=== PATIENT | female | born 1985 | race African-American/Black ===

== ENCOUNTER 2016-07-05 19:12 | Emergency (ER) | payer OTHER, MEDICAID ==
[~2016-07-05 19:12] MED LIST: HYDR12.56 PO; KEPP10002 PO; LORA10TA PO; MEDR150I9 IM; MOME17I; OMEP40CA2 PO; OYST500T53 PO; SALI0.652; TYLE325T PO
[2016-07-05 19:14] VITALS: BP 115/79; PULSE 89; RESP 18; TEMP 97.9; O2SAT 98
[2016-07-05 19:40] VITALS: BP 119/78; PULSE 78; RESP 16; O2SAT 100
[2016-07-05] MEDS ORDERED: TEGR200T PO ×2 (20:10→20:31)
[2016-07-05] MEDS ORDERED: BUSP10TA PO (20:10)
[2016-07-05] MEDS ORDERED: LORA-373 PO (20:10)
[2016-07-05] MEDS ORDERED: DAILTAB PO (20:10)
[2016-07-05] MEDS ORDERED: ZIPR1CAP10 PO (20:11)
[2016-07-05] MEDS ORDERED: LEVE500 PO (20:31)
[2016-07-05 20:39] LABS: BASOPHIL % 0.4 % (0.0-2.0); EOSINOPHIL # 0.1 TH/MM3 (0-0.4); EOSINOPHIL % 1.6 % (0.0-4.0); HEMATOCRIT 33.9 % (35.0-46.0); HEMO FLAGS DIFF FINAL; LYMPH % 31.9 % (9.0-44.0); LYMPHOCYTE # 1.7 TH/MM3 (1.0-4.8); MEAN CELL VOLUME 97.9 FL (80.0-100.0); MEAN CORPUSCULAR HGB CONC 34.7 % (32.0-36.0); MONO % 10.2 % (0.0-8.0); NEUT % 55.9 % (16.0-70.0); PLATELET COUNT 226 TH/MM3 (150-450); RED BLOOD COUNT 3.46 MIL/MM3 (4.00-5.30); RED CELL DISTRIBUTION WIDTH 11.3 % (11.6-17.2); WHITE BLOOD COUNT 5.3 TH/MM3 (4.0-11.0)
[2016-07-05 20:59] LABS: BICARBONATE 29.5 MEQ/L (21.0-32.0)
--- NOTE | 2016-07-05 21:04 | RADRPT ---
EXAM DATE/TIME: 07/05/2016 20:31 [facility] COMPARISON: No previous studies available for comparison. INDICATIONS : Altered mental status today. RADIATION DOSE: 49.48 CTDIvol (mGy) MEDICAL HISTORY : Seizures. SURGICAL HISTORY : Cholecystectomy. ENCOUNTER: Initial ACUITY: 1 day PAIN SCALE: Non-responsive LOCATION: Bilateral head TECHNIQUE: Multiple contiguous axial images were obtained of the head. Using automated exposure control and adj ustment of the mA and/or kV according to patient size, radiation dose was kept as low as reasonably a chievable to obtain optimal diagnostic quality images. FINDINGS: CEREBRUM: The ventricles are normal for age. No evidence of midline shift, mass lesion, hemorrhage or acute in farction. No extra-axial fluid collections are seen. POSTERIOR FOSSA: The cerebellum and brainstem are intact. The 4th ventricle is midline. The cerebellopontine angle i s unremarkable. EXTRACRANIAL: The visualized portion of the orbits is intact. SKULL: The calvaria is intact. No evidence of skull fracture. CONCLUSION: No acute intracranial abnormality demonstrated. Roge Chavira MD on July 05, 2016 at 21:02 Board Certified Radiologist. This report was verified electronically.
--- NOTE | 2016-07-05 21:07 | PD ---
HPI Chief Complaint: Medical Clearance Time Seen by Provider: 21:00 Travel History International Travel<30 days: No Contact w/Intl Traveler<30days: No Traveled to known affect area: No History of Present Illness HPI 31-year-old female that presents to the ED for evaluation of neurological deficits. Patient has a chronic history of autism, developmental delay, deaf as well as seizures. Patient has a new voice intercept technician today. Apparently after shift change the new voice intercept technician noted that the patient was having some abnormal twitching on her left eye and episodes where she will blank out and then will go back to normal. Per family who is also present in the room patient does have a history of grand mal seizures and takes Keppra and Tegretol. Patient follows with Dr. Gibson for neurology. Patient has an appointment next week with the neurologist. No injury. Family and caregiver were concerned more for the stroke. Per family and caregiver patient has been more lethargic than usual. Today she has been more laying on the couch and laying on the bed been doing anything else. Usually she walks around. They state there is no sign of fever or chills or sweats. No chest pain or shortness of breath. Patient has no other medical prongs. She is compliant with her medications. They basically wanted to come here to make sure she does not have a stroke secondary to her facial twitching and her staring episodes. Most of the history is obtained from family as patient is nonverbal and cannot really give me any information but she does appear to follow commands well. PFSH Past Medical History Developmental Delay: Yes Diminished Hearing: Yes (DEAF BILATERALLY) Psychiatric: Yes (AUTISTIC) Seizures: Yes ?: Not Past Surgical History Cholecystectomy: Yes Pacemaker: No Social History Alcohol Use: No Tobacco Use: No Substance Use: No Allergies-Medications (Allergen,Severity, Reaction): Coded Allergies: No Known Allergies (Verified , 07/05/16) Reported Meds & Prescriptions Reported Meds & Active Scripts Active Reported Keppra (Levetiracetam) 500 Mg Tab 500 Mg PO BID Tegretol (Carbamazepine) 200 Mg Tab 200 Mg PO BID Ziprasidone 60 Mg Cap 60 Mg PO DAILY Tegretol (Carbamazepine) 200 Mg Tab 100 Mg PO DAILY Daily Multi (Multiple Vitamins W/ Minerals) 1 Tab Tab Buspirone (Buspirone HCl) 10 Mg Tab 10 Mg PO TID Lorazepam 0.5 Mg Tab 0.5 Mg PO Q8H PRN Hydrochlorothiazide 12.5 Mg Tab 12.5 Mg PO DAILY Tylenol (Acetaminophen) 325 Mg Tab 325 Mg PO Q8HR PRN Omeprazole 40 Mg Cap Nasonex Nasal [place] (Mometasone Furoate) 50 Mcg/Act Naspr Loratadine 10 Mg Tab Depo-Provera Inj (Medroxyprogesterone Inj) 150 Mg/Ml Inj 150 Mg IM Q90D Oyster Shell Calcium (Calcium Carbonate-Cholecalciferol) 500-400 Mg-Unit Tab 2 Tab PO DAILY Review of Systems ROS Limitations: Poor Historian General / Constitutional: No: Fever, Chills, Weight Gain, Weight Loss, Other Eyes: No: Diploplia, Blurred Vision, Photophobia, Drainage, Redness, Foreign Body Sensation, Pain, Tearing, Blind Spots, Visual changes, Blindness, Other HENT: No: Headaches, Vertigo, Lightheadedness, Sore Throat, Rhinitis, Rhinorrhea, Congestion, Nosebleed, Neck Stiffness, Neck Pain, Masses, Gingival Bleeding, Dental Difficulties, Ear Discharge, Earache, Other Cardiovascular: No: Chest Pain or Discomfort, Palpitations, Irregular Rhythm, Tachycardia, Diaphoresis, Syncope, Dyspnea on exertion, Varicosities, Edema, Cyanosis, Varicosities, Phlebitis, Claudication, Other Respiratory: No: Cough, Shortness of Breath, Wheezing, Sneezing, Orthopnea, Hemoptysis, Stridor, Night Sweats, Pleuritic Pain, Other Gastrointestinal: No: Nausea, Vomiting, Diarrhea, Abdominal Pain, Hematemesis, Hematochezia, Constipation, Changes in Bowel Habits, Indigestion, Dysphagia, Loss of Appetite, Other Genitourinary: No: Urgency, Frequency, Dysuria, Nocturia, Hematuria, Decreased Urinary Output, Oliguria, Hesitancy, Dribbling, Incontinence, Pelvic Pain, Flank Pain, Dyspareunia, Discharge, Dysmenorrhea, Menorrhagia, Metorrhagia, Vaginal Bleeding, Other Musculoskeletal: No: Myalgias, Arthralgias, Limited ROM, Weakness, Cramping, Edema, Pain, Atrophy, Other Skin: No Rash, No Itching, No Dryness, No Lumps, No Hives, No Change in Pigmentation, No Change in nails, No Alopecia, No Lesions, No Breast Lumps, No Breast Tenderness, No Breast Swelling, No Other Neurologic: Positive: Focal Abnormalities, Coordination Problem, Tremor, Seizures, No: Weakness, Dizziness, Syncope, Ataxia, Headache, Change in Mentation, Slurred Speech, Paresthesia, Incontinence, Sensory Disturbance, Other Psychiatric: No: Anxiety, Depression, Suicidal Ideations, Disorder of Thought, Mood Disorder, Substance Abuse, Homicidal Ideation, Other Endocrine: No: Heat Intolerance, Cold Intolerance, Polyuria, Polydipsia, Other Hematologic/Lymphatic: No: Easy Bruising, Lymph Node Enlargement, Other Physical Exam Exam Limitations: Poor Historian Narrative GENERAL: SKIN: Warm and dry. HEAD: Atraumatic. Normocephalic. EYES: Pupils equal and round 4 mm reactive to light and accommodation. No scleral icterus. No injection or drainage. EOM intact bilaterally. ENT: No nasal bleeding or discharge. Mucous membranes pink and moist. Tongue is midline. No blood deviation. She does appear to have some difficulty closing the right eye compared to the left. But no obvious facial paralysis. NECK: Trachea midline. No JVD. CARDIOVASCULAR: Regular rate and rhythm. No murmurs, S3, S4. RESPIRATORY: No accessory muscle use. Clear to auscultation. Breath sounds equal bilaterally. GASTROINTESTINAL: Abdomen soft, non-tender, nondistended. Hepatic and splenic margins not palpable. MUSCULOSKELETAL: Extremities without clubbing, cyanosis, or edema. No obvious deformities. Patient appears to have full range of motion of the upper and lower extremities without laterally with no sign of shaking worse deformity. 5 out of 5 strength. Patient does have diverticulitis of the right side of the neck which appears to be chronic. NEUROLOGICAL: Awake and alert. No obvious cranial nerve deficits. Motor grossly within normal limits. Five out of 5 muscle strength in the arms and legs. Normal speech. PSYCHIATRIC: Appropriate mood and affect; insight and judgment normal. Data Data Last Documented VS Vital Signs Date Time Temp Pulse Resp B/P Pulse Ox O2 Delivery O2 Flow Rate FiO2 07/05/16 19:40 78 16 119/78 100 07/05/16 19:14 97.9 Room Air Orders Complete Blood Count With Diff (07/05/16 20:04) Basic Metabolic Panel (Bmp) (07/05/16 20:04) Magnesium (Mg) (07/05/16 20:04) Ct Brain W/O Iv Contrast(Rout) (07/05/16 20:04) Levetiracetam (07/05/16 20:04) Carbamazepine (Tegretol) (07/05/16 20:57) Mri Brain W/O Contrast (07/05/16 ) Labs Laboratory Tests Test 07/05/16 20:15 White Blood Count 5.3 TH/MM3 Red Blood Count 3.46 MIL/MM3 Hemoglobin 11.8 GM/DL Hematocrit 33.9 % Mean Corpuscular Volume 97.9 FL Mean Corpuscular Hemoglobin 34.0 PG Mean Corpuscular Hemoglobin 34.7 % Concent Red Cell Distribution Width 11.3 % Platelet Count 226 TH/MM3 Mean Platelet Volume 7.0 FL Neutrophils (%) (Auto) 55.9 % Lymphocytes (%) (Auto) 31.9 % Monocytes (%) (Auto) 10.2 % Eosinophils (%) (Auto) 1.6 % Basophils (%) (Auto) 0.4 % Neutrophils # (Auto) 3.0 TH/MM3 Lymphocytes # (Auto) 1.7 TH/MM3 Monocytes # (Auto) 0.5 TH/MM3 Eosinophils # (Auto) 0.1 TH/MM3 Basophils # (Auto) 0.0 TH/MM3 CBC Comment DIFF FINAL Differential Comment Sodium Level 136 MEQ/L Potassium Level 4.0 MEQ/L Chloride Level 101 MEQ/L Carbon Dioxide Level 29.5 MEQ/L Anion Gap 6 MEQ/L Blood Urea Nitrogen 11 MG/DL Creatinine 0.97 MG/DL Estimat Glomerular Filtration 81 ML/MIN Rate Random Glucose 84 MG/DL Calcium Level 8.4 MG/DL Magnesium Level 2.0 MG/DL Carbamazepine (Tegretol) Level 6.4 MCG/ML MDM Medical Decision Making Medical Screen Exam Complete: Yes Emergency Medical Condition: Yes Medical Record Reviewed: Yes Interpretation(s) CBC Diagram 07/05/16 20:15 Differential Diagnosis Seizure versus CVA versus electrolyte abnormality versus spasm versus normal exam Narrative Course 31-year-old female that presents to the ED for evaluation of possible seizure versus CVA. Patient was properly examined and was found to have signs and symptoms consistent with appears to be more seizure related versus takes than actual CVA. Patient has no obvious deficits. On my exam patient doesn't have any sign of weakness or deformity. It is somewhat hard to assess secondary to her deafness as well as her mental illness. At this time and we'll check labs and do a CT of the head. Labs and CT showed no obvious disease. My attending Dr Angeles went and evaluated the patient and recommends MRI to rule out CVA. She believes that this could be bells palsy vs CVA vs seizures. She is unfortunately hard to asses secondary to her medical and mental conditions. Family told of this and agreeable. Case signed out to my attending pending MRI result. Orlando Doherty Jul 05, 2016 21:06
--- NOTE | 2016-07-05 21:41 | PD ---
Physical Exam Narrative General: The patient is a well-developed well-nourished female in no acute distress, awake and alert. She is cooperative on examination. She is nonverbal. Head and Neck exam: Head is normocephalic atraumatic. Eyes: EOMI, pupils are equal round and reactive to light. The patient is having difficulty closing the right eye on exam. She has repeated tearing of the right eye. The patient has a facial droop when attempting to smile noted in the right side of her face. Nose: Midline septum with pink mucous membranes Mouth: Dentition unremarkable. Moist mucus membranes. Posterior oropharynx is not erythematous. No tonsillar hypertrophy. Uvula midline. Airway patent. Neck: No palpable lymphadenopathy. No nuchal rigidity. No thyromegaly. Cardiovascular: Regular rate and rhythm without murmurs, gallops, or rubs. Lungs: Clear to auscultation bilaterally. No wheezes, rhonchi, or rales. Abdomen: Soft, without tenderness to palpation in all 4 quadrants of the abdomen. No guarding, rebound, or rigidity. Normal bowel sounds are audible Extremities: No clubbing, cyanosis, or edema. 2+ pulses in all 4 extremities. Neurologic Exam: The patient is nonverbal at baseline. The patient has a history from looking at her prior neurologic examinations of maintaining her neck hyperextended and turned to the right, however she is able to overcome this and look about the room. The patient has strength in her extremities that is 5 over 5 and intact sensation over all dermatomes although it is difficult to examine her face for intact sensation over facial dermatomes. The patient is noted to have repeated tearing of the right eye with difficulty closing the right eye. The patient is noted to have a right sided slight facial droop with attempting to smile. The patient is not able to cooperate to raise her eyebrows , therefore it is difficult to assess whether she is able to do this and this is strictly a [place]'s palsy. Skin Exam: No rash noted. Intact skin that is warm and dry. Data Data Last Documented VS Vital Signs Date Time Temp Pulse Resp B/P Pulse Ox O2 Delivery O2 Flow Rate FiO2 07/05/16 22:00 79 16 122/80 97 Room Air 07/05/16 19:14 97.9 Orders Complete Blood Count With Diff (07/05/16 20:04) Basic Metabolic Panel (Bmp) (07/05/16 20:04) Magnesium (Mg) (07/05/16 20:04) Ct Brain W/O Iv Contrast(Rout) (07/05/16 20:04) Levetiracetam (07/05/16 20:04) Carbamazepine (Tegretol) (07/05/16 20:57) Mri Brain W/O Contrast (07/05/16 ) Valacyclovir (Valtrex) (07/05/16 23:30) Prednisone (Deltasone) (07/05/16 23:30) Labs Laboratory Tests Test 07/05/16 20:15 White Blood Count 5.3 TH/MM3 Red Blood Count 3.46 MIL/MM3 Hemoglobin 11.8 GM/DL Hematocrit 33.9 % Mean Corpuscular Volume 97.9 FL Mean Corpuscular Hemoglobin 34.0 PG Mean Corpuscular Hemoglobin 34.7 % Concent Red Cell Distribution Width 11.3 % Platelet Count 226 TH/MM3 Mean Platelet Volume 7.0 FL Neutrophils (%) (Auto) 55.9 % Lymphocytes (%) (Auto) 31.9 % Monocytes (%) (Auto) 10.2 % Eosinophils (%) (Auto) 1.6 % Basophils (%) (Auto) 0.4 % Neutrophils # (Auto) 3.0 TH/MM3 Lymphocytes # (Auto) 1.7 TH/MM3 Monocytes # (Auto) 0.5 TH/MM3 Eosinophils # (Auto) 0.1 TH/MM3 Basophils # (Auto) 0.0 TH/MM3 CBC Comment DIFF FINAL Differential Comment Sodium Level 136 MEQ/L Potassium Level 4.0 MEQ/L Chloride Level 101 MEQ/L Carbon Dioxide Level 29.5 MEQ/L Anion Gap 6 MEQ/L Blood Urea Nitrogen 11 MG/DL Creatinine 0.97 MG/DL Estimat Glomerular Filtration 81 ML/MIN Rate Random Glucose 84 MG/DL Calcium Level 8.4 MG/DL Magnesium Level 2.0 MG/DL Carbamazepine (Tegretol) Level 6.4 MCG/ML [facility] Medical Record Reviewed: Yes Supervised Visit with ELANA: Yes Differential Diagnosis [place]'s palsy, versus focal seizure, versus change in baseline related psychiatric disorder, versus metabolic encephalopathy, versus intracranial abnormality. Narrative Course I, Dr. Angeles, have reviewed the advance practice practitioner's documentation and am in agreement, met with the patient face to face, made the diagnosis, and the medical decision making was done by me. *My assessment and Findings: The patient is a 31-year-old female who presents to [facility] emergency Department with a history of according to her caregiver that is been caring for her part-time over the last year having a change in her normal behavior throughout the day today. She reports that she's been less active than usual and had a diminished appetite throughout the day. She has also been noted to have difficulty closing her right eye and tearing from her right eye. She has not had any vomiting or diarrhea. She has not had any signs of pain. Laboratory studies and imaging studies have been ordered to further evaluate the patient's symptoms. Laboratory studies revealed a CBC with white count 5.3, hemoglobin 11.8, platelets 226 with a monocytosis at 10.2 , BNP is unremarkable, magnesium is 2, Tegretol level is therapeutic, Keppra level is pending. At the conclusion of Denzel's shift, the patient's case was checked out to me. Please see his complete history and physical. CT scan of the brain was read as negative for acute abnormality by the reading radiologist. MRI of the brain showed no acute abnormality as read by the reading radiologist. The patient's symptoms based on my examination appeared to be most likely related to a [place]'s palsy, partial right-sided facial nerve paralysis. The patient's findings and diagnosis were discussed with the family. The patient was started on prednisone 20 mg by mouth, Valtrex 1 g by mouth. The patient has a follow-up appointment already scheduled with her neurologist, Dr. Gibson for . The patient's family was encouraged to follow up on . They were encouraged that if she develops any new or worsening signs or symptoms that should report back to the emergency department. The patient is resting comfortably and feels better, is alert and in no distress. The patients results and examination findings were discussed with the family. The repeat examination is unremarkable and benign. The history, exam, diagnostic testing, and current condition do not suggest any significant pathology to warrant further testing, continued ED treatment, admission, or surgical evaluation at this point. The vital signs have been stable. The patient does not have uncontrollable pain, intractable vomiting, or other significant symptoms. The patient's condition is stable and appropriate for discharge. The patient will pursue further outpatient evaluation with a primary care physician or other designated or consulting physician as indicated in the discharge instructions. The patient expressed understanding and was agreeable with this plan. Diagnosis Primary Impression: [place]'s palsy Referrals: Aditya Gibson PhD 2 days Patient Instructions: [place] Palsy (ED), General Instructions Med/Other Pt SpecificInfo: Prescription(s) given Scripts Valacyclovir (Valtrex)1 Gm Tab1,000 Mg PO TID #21 TAB Ref 0 Prov:Roz Angeles MD 07/05/16 Prednisone 20 Mg Tab20 Mg PO TID 7 Days Ref 0 Prov:Roz Angeles MD 07/05/16 Disposition: 01 DISCHARGE HOME Condition: Stable Roz Angeles MD Jul 05, 2016 21:41
[2016-07-05 22:00] VITALS: BP 122/80; PULSE 79; RESP 16; O2SAT 97
--- NOTE | 2016-07-05 23:16 | RADRPT ---
EXAM DATE/TIME: 07/05/2016 22:39 [facility] COMPARISON: No previous studies available for comparison. INDICATIONS : Right facial droop, MEDICAL HISTORY : Seizures. SURGICAL HISTORY : Cholecystectomy. ENCOUNTER: Initial ACUITY: 1 day PAIN SCORE: 0/10 LOCATION: cranial TECHNIQUE: Multiplanar, multisequence MRI of the brain was performed without contrast. FINDINGS: CEREBRUM: The ventricles are normal for age. No evidence of midline shift, mass lesion, hemorrhage or acute in farction. No extraaxial fluid collections are seen. The pituitary gland and suprasellar cistern are normal in configuration. WHITE MATTER: No significant signal abnormalities are seen in the white matter. POSTERIOR FOSSA: The cerebellum and brainstem are intact. The 4th ventricle is midline. The cerebellopontine angle is unremarkable. The cerebellar tonsils are normal in position. DIFFUSION IMAGING: No focal areas of restricted diffusion are seen. No evidence of acute infarction. EXTRACRANIAL: The visualized portions of the orbits and paranasal sinuses are unremarkable. CONCLUSION: No acute disease. Roge Hess MD on July 05, 2016 at 23:13 Board Certified Radiologist. This report was verified electronically.
[2016-07-05] MEDS ORDERED: VALT1TAB PO (23:24)
[2016-07-05] MEDS ORDERED: PRED20 PO (23:24)
[2016-07-05] MEDS ORDERED: predniSONE 20 MG TAB PO ONE (23:30)
[2016-07-05] MEDS ORDERED: valACYclovir HCL 500 MG TAB PO ONE (23:30)
[2016-07-19] MEDS ORDERED: TEGR200T PO (14:02)
[2016-07-19] MEDS ORDERED: FIBE625T3 PO (14:04)
[2016-07-19] MEDS ORDERED: [UNRECOGNIZED DRUG - OTHER] (14:25)
[2016-09-03] MEDS ORDERED: DEPO150I IM (15:03)
[2016-09-06] MEDS ORDERED: MEDR150I IM (14:57)
[2016-09-06] MEDS ORDERED: TEGR200T PO ×2 (14:57)
[2016-09-07] MEDS ORDERED: MOME17I (15:18)
== END 2016-07-06 00:25 | disposition home or self-care (01) ==
LOC: NEPC 19:12
DX: G51.0 Bell's palsy (principal); F84.0 Autistic disorder; Z79.899 Other long term (current) drug therapy
CPT/HCPCS: 70450; 70551; 80048; 80156; 80177; 83735; 85025; 99284; J7512

== ENCOUNTER 2017-02-15 11:33 | Emergency (ER) | payer OTHER, MEDICAID ==
[~2017-02-15] VITALS: Ht 165.1 cm; Wt 78.0 kg
[~2017-02-15 11:33] MED LIST changes: +ALLE10TA PO; +BUSP10TA PO; +FIBE625T3 PO; +GEOD60CA PO; -KEPP10002 PO; +LEVE500 PO; +LORA-373 PO; -LORA10TA PO; +MEDR150I IM; -MEDR150I9 IM; +ONETAB22 PO; -SALI0.652; +ZIPR1CAP10 PO; +[UNRECOGNIZED DRUG - OTHER]
[2017-02-15 11:35] VITALS: BP 136/78; PULSE 67; RESP 20; TEMP 98.5; O2SAT 95
[2017-02-15] MEDS ORDERED: ARTIDRO EACH EYE (12:08)
[2017-02-15] MEDS ORDERED: CHLO.12%30 SWISH-SPIT (12:08)
[2017-02-15] MEDS ORDERED: SODIUM CHLORIDE 0.9% FLUSH 10 ML FLUSH IVF PRN (12:15)
[2017-02-15 12:49] LABS: AUTOMATED NEUTROPHIL # 3.1 TH/MM3 (1.8-7.7); BASOPHIL % 0.5 % (0.0-2.0); EOSINOPHIL # 0.1 TH/MM3 (0-0.4); HEMATOCRIT 34.8 % (35.0-46.0); HEMO FLAGS DIFF FINAL; LYMPH % 29.1 % (9.0-44.0); LYMPHOCYTE # 1.5 TH/MM3 (1.0-4.8); MEAN CELL VOLUME 100.2 FL (80.0-100.0); MEAN CORPUSCULAR HEMOGLOBIN 33.4 PG (27.0-34.0); MEAN CORPUSCULAR HGB CONC 33.4 % (32.0-36.0); MONO % 9.7 % (0.0-8.0); NEUT % 59.7 % (16.0-70.0); PLATELET COUNT 215 TH/MM3 (150-450); RED BLOOD COUNT 3.47 MIL/MM3 (4.00-5.30); RED CELL DISTRIBUTION WIDTH 11.5 % (11.6-17.2); WHITE BLOOD COUNT 5.2 TH/MM3 (4.0-11.0)
[2017-02-15 13:05] LABS: BICARBONATE 25.8 MEQ/L (21.0-32.0); POTASSIUM 3.8 MEQ/L (3.5-5.1)
--- NOTE | 2017-02-15 13:33 | RADRPT ---
EXAM DATE/TIME: 02/15/2017 13:08 [facility] COMPARISON: CT BRAIN W/O CONTRAST, July 05, 2016, 20:31. INDICATIONS : Altered mental status. RADIATION DOSE: 41.42 CTDIvol (mGy) MEDICAL HISTORY : Seizures. Autism. SURGICAL HISTORY : Cholecystectomy. ENCOUNTER: Initial ACUITY: 1 day PAIN SCALE: 0/10 LOCATION: cranial TECHNIQUE: Multiple contiguous axial images were obtained of the head. Using automated exposure control and adj ustment of the mA and/or kV according to patient size, radiation dose was kept as low as reasonably a chievable to obtain optimal diagnostic quality images. DICOM format image data is available electro nically for review and comparison. FINDINGS: CEREBRUM: The ventricles are normal for age. No evidence of midline shift, mass lesion, hemorrhage or acute in farction. No extra-axial fluid collections are seen. POSTERIOR FOSSA: The cerebellum and brainstem are intact. The 4th ventricle is midline. The cerebellopontine angle i s unremarkable. EXTRACRANIAL: The visualized portion of the orbits is intact. SKULL: The calvaria is intact. No evidence of skull fracture. CONCLUSION: 1. No acute intracranial abnormality. [place] Duff MD on February 15, 2017 at 13:28 Board Certified Radiologist. This report was verified electronically.
[2017-02-15 14:00] VITALS: BP 117/75; PULSE 74; RESP 18; O2SAT 95
--- NOTE | 2017-02-15 14:41 | PD ---
HPI Chief Complaint: Seizure Time Seen by Provider: 12:09 Travel History International Travel<30 days: No Contact w/Intl Traveler<30days: No Traveled to known affect area: No History of Present Illness HPI 31-year-old female was brought to the emergency room by her mother and the apple picking supervisor at the halfway for a seizure that happened yesterday. This was a witnessed seizure and I spoke with the person on the phone who witnessed it. Patient lives in a halfway. She has history of autism and seizure disorder. She is on Keppra and has been taking all her medications as per the prescription direction. Her neurologist is Dr. Gibson. As per the witness patient had a 5 minute tonic-clonic seizure at 4:30 PM yesterday. No history of tongue bite or incontinence. Mom says that she has not had a seizure in almost 2 years. She used to be on Depakote which was stopped for side effects. This was 2 months ago. Today the mother found out about this seizure and brought her here since that is the protocol as per Dr. Gibson. Patient has not had any seizures today. Her mental status is at her baseline. Patient is nonverbal and the history is entirely provided by the mother and the apple picking supervisor. Vital signs were stable. [facility] Past Medical History Narrative Medical List of her past medical, surgical, social and family history is reviewed from the nursing note. Developmental Delay: Yes Diminished Hearing: Yes (DEAF BILATERALLY) Psychiatric: Yes (AUTISTIC) Seizures: Yes ?: Not Past Surgical History Cholecystectomy: Yes Pacemaker: No Social History Alcohol Use: No Tobacco Use: No Substance Use: No Allergies-Medications (Allergen,Severity, Reaction): Coded Allergies: No Known Allergies (Verified , 12/07/16) Comments No known drug allergies. Reported Meds & Prescriptions Reported Meds & Active Scripts Active Keppra (Levetiracetam) 1,000 Mg Tab 1,000 Mg PO BID One Daily-Minerals (Multiple Vitamins W/ Minerals) 1 Tab 1 Tab PO DAILY Hydrochlorothiazide 12.5 Mg Tab 12.5 Mg PO DAILY Omeprazole 40 Mg Cap 40 Mg PO DAILY Oyster Shell Calcium (Calcium Carbonate-Cholecalciferol) 500-400 Mg-Unit Tab 2 Tab PO DAILY Allergy Relief (Loratadine) 10 Mg Tab 10 Mg PO DAILY Nasonex Nasal [place] (Mometasone Furoate) 50 Mcg/Act Naspr 2 Spr NA DAILY [restraints] Misc 1 Units .ROUTE DIRECTED PRN Fiber Laxative (Calcium Polycarbophil) 625 Mg Tab 1,250 Mg PO BID PRN Reported Artificial Tears Opth Drops (Propylene Glycol-Glycerin Opth Drops) 1-0.3% Drops 1-2 Drop EACH EYE PRN PRN Chlorhexidine Gluconate (Mouth) Liq (Chlorhexidine Gluconate) 0.12% Soln 15 Ml SWISH-SPIT BID Geodon (Ziprasidone) 60 Mg Cap 60 Mg PO DAILY Medroxyprogesterone Inj 150 Mg/Ml Inj 150 Mg IM Q90D Keppra (Levetiracetam) 500 Mg Tab 500 Mg PO BID Ziprasidone 60 Mg Cap 120 Mg PO HS Buspirone (Buspirone HCl) 10 Mg Tab 10 Mg PO TID Lorazepam 0.5 Mg Tab 0.5 Mg PO TID Tylenol (Acetaminophen) 325 Mg Tab 325 Mg PO Q8HR PRN Narrative Medication List of her home medications reviewed from the nursing note. Review of Systems Except as stated in HPI: all other systems reviewed are Neg Physical Exam Narrative GENERAL: Awake, alert, nonverbal, no obvious distress, jon KRAMER SKIN: Focused skin assessment warm/dry. HEAD: Atraumatic. Normocephalic. EYES: Pupils equal and round. No scleral icterus. No injection or drainage. ENT: No nasal bleeding or discharge. Mucous membranes pink and moist. NECK: Trachea midline. No JVD. Torticollis that is her baseline CARDIOVASCULAR: Regular rate and rhythm. No murmur appreciated. RESPIRATORY: No accessory muscle use. Clear to auscultation. Breath sounds equal bilaterally. GASTROINTESTINAL: Abdomen soft, non-tender, nondistended. Hepatic and splenic margins not palpable. MUSCULOSKELETAL: No obvious deformities. No clubbing. No cyanosis. No edema. NEUROLOGICAL: Awake and alert. No obvious cranial nerve deficits. Motor grossly within normal limits. Nonverbal. jon KRAMER PSYCHIATRIC: Appropriate mood and affect; insight and judgment normal. Data Data Last Documented VS Vital Signs Date Time Temp Pulse Resp B/P (MAP) Pulse Ox O2 Delivery O2 Flow Rate FiO2 02/15/17 15:40 02/15/17 15:30 82 17 96 Room Air 02/15/17 11:35 98.5 Orders Orders Complete Blood Count With Diff (02/15/17 12:13) Basic Metabolic Panel (Bmp) (02/15/17 12:13) Ct Brain W/O Iv Contrast(Rout) (02/15/17 ) Blood Glucose (02/15/17 12:13) Ecg Monitoring (02/15/17 12:13) Iv Access Insert/Monitor (02/15/17 12:13) Oximetry (02/15/17 12:13) Sodium Chloride 0.9% Flush (Ns Flush) (02/15/17 12:15) Magnesium (Mg) (02/15/17 12:16) Levetiracetam (Keppra) (02/15/17 15:00) Acetaminophen (Tylenol) (02/15/17 15:30) Labs Laboratory Tests Test 02/15/17 12:05 White Blood Count 5.2 TH/MM3 Red Blood Count 3.47 MIL/MM3 Hemoglobin 11.6 GM/DL Hematocrit 34.8 % Mean Corpuscular Volume 100.2 FL Mean Corpuscular Hemoglobin 33.4 PG Mean Corpuscular Hemoglobin Concent 33.4 % Red Cell Distribution Width 11.5 % Platelet Count 215 TH/MM3 Mean Platelet Volume 7.2 FL Neutrophils (%) (Auto) 59.7 % Lymphocytes (%) (Auto) 29.1 % Monocytes (%) (Auto) 9.7 % Eosinophils (%) (Auto) 1.0 % Basophils (%) (Auto) 0.5 % Neutrophils # (Auto) 3.1 TH/MM3 Lymphocytes # (Auto) 1.5 TH/MM3 Monocytes # (Auto) 0.5 TH/MM3 Eosinophils # (Auto) 0.1 TH/MM3 Basophils # (Auto) 0.0 TH/MM3 CBC Comment DIFF FINAL Differential Comment Blood Urea Nitrogen 9 MG/DL Creatinine 0.86 MG/DL Random Glucose 76 MG/DL Calcium Level 9.0 MG/DL Sodium Level 140 MEQ/L Potassium Level 3.8 MEQ/L Chloride Level 107 MEQ/L Carbon Dioxide Level 25.8 MEQ/L Anion Gap 7 MEQ/L Estimat Glomerular Filtration Rate 93 ML/MIN Magnesium Level 2.2 MG/DL MDM Medical Decision Making Medical Screen Exam Complete: Yes Emergency Medical Condition: Yes Medical Record Reviewed: Yes Differential Diagnosis Breakthrough seizure, electrolyte abnormalities Narrative Course 2:37 PM blood test results are back and within acceptable limits. CT scan of her head was within normal limits. I have put a call out for Dr. Gibson to discuss this patient. 2:54 PM I just discussed the case with Dr. Gibson. He wants the Keppra raised up to 1000 mg twice a day. I will give her dose of 500 mg here and he will see her in his office in a week or so. Procedures EKG Prior to Arrival: No Diagnosis Primary Impression: Seizure disorder Referrals: Aditya Gibson PhD 1 week Additional Instructions: Please call Dr. Gibson's office to make an appointment in one week. He wanted her Keppra to be increased up to 1000 mg twice a day. Please follow the new prescriptions to she's been seen by him. Return to the ER if the condition worsens or any other new concerns. She should not be driving or swimming. Med/Other Pt SpecificInfo: Prescription(s) given Scripts Levetiracetam (Keppra) 1,000 Mg Tab 1000 MG PO BID for Control Seizures, #60 TAB 0 Refills Prov: Gerber Prabhakar MD 02/15/17 Disposition: 01 DISCHARGE HOME Condition: Stable Gerber Prabhakar MD Feb 15, 2017 14:41
[2017-02-15] MEDS ORDERED: KEPP10002 PO (14:56)
[2017-02-15 15:00] VITALS: BP 116/68; PULSE 84; RESP 17; O2SAT 97
[2017-02-15] MEDS ORDERED: levETIRAcetam 500 MG TAB PO ONE (15:00)
[2017-02-15 15:30] VITALS: BP 106/70; PULSE 82; RESP 17; O2SAT 96
[2017-02-15] MEDS ORDERED: ACETAMINOPHEN 325 MG TAB PO ONE (15:30)
[2017-02-28] MEDS ORDERED: MEDR150I IM (16:59)
[2017-03-01] MEDS ORDERED: DEPO150I IM (11:13)
[2017-03-01] MEDS ORDERED: MOME17I EACH NARE (13:59)
== END 2017-02-15 15:51 | disposition home or self-care (01) ==
LOC: NEPE 11:33
DX: G40.909 Epilepsy, unspecified, not intractable, without status epilepticus (principal); F84.0 Autistic disorder; Z79.899 Other long term (current) drug therapy
CPT/HCPCS: 70450; 80048; 83735; 85025; 99284

== ENCOUNTER 2017-04-22 08:49 | Emergency (ER) | payer OTHER, MEDICAID ==
[~2017-04-22] VITALS: Ht 170.2 cm; Wt 80.0 kg
[~2017-04-22 08:49] MED LIST changes: -ALLE10TA PO; +ARTIDRO EACH EYE; +CALC625T9 PO; +CHLO.12%30 SWISH-SPIT; -FIBE625T3 PO; -LORA-373 PO; +LORA-650 PO; +LORA0.5T PO; +MOME17I EACH NARE; -OMEP40CA2 PO; +RANI150T PO; -ZIPR1CAP10 PO; +[UNRECOGNIZED DRUG - CODE] TOPICAL
[2017-04-22 08:55] VITALS: BP 117/74; PULSE 114; RESP 16; TEMP 97.9; O2SAT 95
--- NOTE | 2017-04-22 09:10 | PD ---
HPI Chief Complaint: Seizure Time Seen by Provider: 09:02 Travel History International Travel<30 days: No Contact w/Intl Traveler<30days: No Traveled to known affect area: No History of Present Illness HPI 32 year-old woman history of seizures, developmental delay, hearing impairment, presents to the emergency department for seizure. In this report witnessed seizure, lasting about 3 minutes, generalized tonic-clonic associated with urinary incontinence. Return to baseline now. She is on Keppra for seizures. She's been taking her medicines regularly. Telegraph Inspector the bedside denies any other recent illness injury change in behavior. Patient is unable to provide any history. History Past Medical History Narrative Medical Developmental delay Seizures Significant hearing impairment Social History Alcohol Use: No Tobacco Use: No Allergies-Medications (Allergen,Severity, Reaction): Coded Allergies: No Known Allergies (Verified Adverse Reaction, Unknown, 03/23/17) Reported Meds & Prescriptions Reported Meds & Active Scripts Active Fiber Laxative (Calcium Polycarbophil) 625 Mg Tab 1,250 Mg PO BID PRN Neosporin Eczema Essential Topical (Colloidal Oatmeal) 1% Cream 1 Applic TOPICAL DAILY PRN Medroxyprogesterone Inj 150 Mg/Ml Inj 150 Mg IM Q90D Ranitidine (Ranitidine HCl) 150 Mg Tab 150 Mg PO DAILY Nasonex Nasal [place] (Mometasone Furoate) 50 Mcg/Act Naspr 1 [place] EACH NARE DAILY One Daily-Minerals (Multiple Vitamins W/ Minerals) 1 Tab 1 Tab PO DAILY Hydrochlorothiazide 12.5 Mg Tab 12.5 Mg PO DAILY Oyster Shell Calcium (Calcium Carbonate-Cholecalciferol) 500-400 Mg-Unit Tab 2 Tab PO DAILY Allergy Relief (Loratadine) 10 Mg Tab 10 Mg PO DAILY Nasonex Nasal [place] (Mometasone Furoate) 50 Mcg/Act Naspr 2 Spr NA DAILY [restraints] Misc 1 Units .ROUTE DIRECTED PRN Reported Artificial Tears Opth Drops (Propylene Glycol-Glycerin Opth Drops) 1-0.3% Drops 1-2 Drop EACH EYE PRN PRN Chlorhexidine Gluconate (Mouth) Liq (Chlorhexidine Gluconate) 0.12% Soln 15 Ml SWISH-SPIT BID Geodon (Ziprasidone) 60 Mg Cap 60 Mg PO BID Keppra (Levetiracetam) 500 Mg Tab 500 Mg PO TID Buspirone (Buspirone HCl) 10 Mg Tab 10 Mg PO TID Lorazepam 0.5 Mg Tab 0.5 Mg PO TID Tylenol (Acetaminophen) 325 Mg Tab 325 Mg PO Q8HR PRN Review of Systems Except as stated in HPI: all other systems reviewed are Neg Physical Exam Narrative GENERAL: 32 year-old woman, no acute distress. Impaired, consigned some, not by much history. SKIN: Focused skin assessment warm/dry. HEAD: Atraumatic. Normocephalic. EYES: Pupils equal and round. No scleral icterus. No injection or drainage. ENT: No nasal bleeding or discharge. Mucous membranes pink and moist. NECK: Trachea midline. No JVD. CARDIOVASCULAR: Regular rate and rhythm. No murmur appreciated. RESPIRATORY: No accessory muscle use. Clear to auscultation. Breath sounds equal bilaterally. GASTROINTESTINAL: Abdomen soft, non-tender, nondistended. Hepatic and splenic margins not palpable. MUSCULOSKELETAL: No obvious deformities. No clubbing. No cyanosis. No edema. NEUROLOGICAL: Awake and alert. Nonverbal. Moves all extremities. A little bit a contractures. Data Data Last Documented VS Vital Signs Date Time Temp Pulse Resp B/P (MAP) Pulse Ox O2 Delivery O2 Flow Rate FiO2 04/22/17 09:46 78 16 115/72 (86) 97 Room Air 04/22/17 08:55 97.9 Orders Orders Complete Blood Count With Diff (04/22/17 09:02) Comprehensive Metabolic Panel (04/22/17 09:02) Iv Access Insert/Monitor (04/22/17 09:02) Beta Hcg (Quant/Titer) (04/22/17 09:02) Urinalysis - C+S If Indicated (04/22/17 09:02) Lorazepam Inj (Ativan Inj) (04/22/17 09:15) Sodium Chlor 0.9% 1000 Ml Inj (Ns 1000 M (04/22/17 09:15) Cath For Specimen (04/22/17 10:45) Labs Laboratory Tests Test 04/22/17 09:20 04/22/17 11:08 White Blood Count 3.3 TH/MM3 Red Blood Count 3.46 MIL/MM3 Hemoglobin 11.6 GM/DL Hematocrit 34.7 % Mean Corpuscular Volume 100.4 FL Mean Corpuscular Hemoglobin 33.6 PG Mean Corpuscular Hemoglobin Concent 33.4 % Red Cell Distribution Width 11.4 % Platelet Count 194 TH/MM3 Mean Platelet Volume 6.8 FL Neutrophils (%) (Auto) 61.1 % Lymphocytes (%) (Auto) 27.9 % Monocytes (%) (Auto) 9.1 % Eosinophils (%) (Auto) 1.3 % Basophils (%) (Auto) 0.6 % Neutrophils # (Auto) 2.0 TH/MM3 Lymphocytes # (Auto) 0.9 TH/MM3 Monocytes # (Auto) 0.3 TH/MM3 Eosinophils # (Auto) 0.0 TH/MM3 Basophils # (Auto) 0.0 TH/MM3 CBC Comment DIFF FINAL Differential Comment Blood Urea Nitrogen 8 MG/DL Creatinine 0.90 MG/DL Random Glucose 87 MG/DL Total Protein 7.7 GM/DL Albumin 3.5 GM/DL Calcium Level 8.6 MG/DL Alkaline Phosphatase 60 U/L Aspartate Amino Transf (AST/SGOT) 15 U/L Alanine Aminotransferase (ALT/SGPT) 16 U/L Total Bilirubin 0.4 MG/DL Sodium Level 141 MEQ/L Potassium Level 3.5 MEQ/L Chloride Level 109 MEQ/L Carbon Dioxide Level 23.8 MEQ/L Anion Gap 8 MEQ/L Estimat Glomerular Filtration Rate 88 ML/MIN Human Chorionic Gonadotropin, Quant LESS THAN 1 MIU/ML Urine Color COLORLESS Urine Turbidity CLEAR Urine pH 7.0 Urine Specific [place] 1.003 Urine Protein NEG mg/dL Urine Glucose (UA) NEG mg/dL Urine Ketones NEG mg/dL Urine Occult Blood NEG Urine Nitrite NEG Urine Bilirubin NEG Urine Urobilinogen LESS THAN 2.0 MG/DL Urine Leukocyte Esterase NEG Urine RBC LESS THAN 1 /hpf Microscopic Urinalysis Comment CULT NOT INDICATED MDM Medical Decision Making Medical Screen Exam Complete: Yes Emergency Medical Condition: Yes Interpretation(s) LABS: CBC unremarkable. CMP is unremarkable UA negative Differential Diagnosis Seizures, infection, electrolyte abnormalities, other Narrative Course Medical decision making INITIAL: 32 year-old woman, presents emergency department with seizure, history of seizures. Last seizure was about 3 months ago according to report. She was seen in February the ED with seizures. She takes Keppra, she has been taking it. No other history suggest significant change. We'll check labs and urine. We'll give small dose of Ativan. Otherwise recommend continue current medications. Diagnosis Primary Impression: Generalized onset seizure disorder Additional Instructions: Continue current medications. Follow up with her primary doctor in the next 2-4 days. Med/Other Pt SpecificInfo: No Change to Meds Disposition: 01 DISCHARGE HOME Condition: Stable Luiz Padron MD Apr 22, 2017 09:10
[2017-04-22] MEDS ORDERED: SODIUM CHLOR 0.9% 1000 ML INJ 1,000 ML IV ONE (09:15)
[2017-04-22] MEDS ORDERED: LORazepam 2 MG/ML VIAL IV PUSH ONE (09:15)
[2017-04-22 09:30] LABS: BASOPHIL % 0.6 % (0.0-2.0); EOSINOPHIL % 1.3 % (0.0-4.0); HEMATOCRIT 34.7 % (35.0-46.0); HEMO FLAGS DIFF FINAL; LYMPH % 27.9 % (9.0-44.0); LYMPHOCYTE # 0.9 TH/MM3 (1.0-4.8); MEAN CELL VOLUME 100.4 FL (80.0-100.0); MEAN CORPUSCULAR HEMOGLOBIN 33.6 PG (27.0-34.0); MEAN CORPUSCULAR HGB CONC 33.4 % (32.0-36.0); MONO % 9.1 % (0.0-8.0); NEUT % 61.1 % (16.0-70.0); PLATELET COUNT 194 TH/MM3 (150-450); RED BLOOD COUNT 3.46 MIL/MM3 (4.00-5.30); RED CELL DISTRIBUTION WIDTH 11.4 % (11.6-17.2); WHITE BLOOD COUNT 3.3 TH/MM3 (4.0-11.0)
[2017-04-22 09:42] LABS: ANION GAP 8 MEQ/L (5-15); AST (GOT) 15 U/L (15-37); BICARBONATE 23.8 MEQ/L (21.0-32.0); BLOOD UREA NITROGEN 8 MG/DL (7-18); CHLORIDE 109 MEQ/L (98-107); GLOMERULAR FILTRATION RATE 88 ML/MIN (>89); POTASSIUM 3.5 MEQ/L (3.5-5.1); SODIUM (NA) 141 MEQ/L (136-145)
[2017-04-22 09:46] VITALS: BP 115/72; PULSE 78; RESP 16; O2SAT 97
[2017-04-22 09:49] LABS: ALKALINE PHOSPHATASE 60 U/L (45-117); ALT (GPT) 16 U/L (10-53); BETA HCG QUANT LESS THAN 1 MIU/ML (0-5); TOTAL BILIRUBIN ADULT 0.4 MG/DL (0.2-1.0)
[2017-04-22 11:39] LABS: BLOOD, URINE NEG (NEG); GLUCOSE,URINE NEG (NEG); KETONE, URINE NEG (NEG); NITRITE,URINE NEG (NEG); URINE COLOR COLORLESS (YELLW/STRAW)
[2017-04-22 11:42] LABS: COMMENT (UR) CULT NOT INDICATED; CULTURE IF INDICATED CULT NOT INDICATED
[2017-04-25] MEDS ORDERED: FLU60SYR19 IM (15:35)
[2017-04-28] MEDS ORDERED: OYST500T53 PO (10:07)
[2017-04-28] MEDS ORDERED: HYDR12.56 PO (10:07)
[2017-05-04] MEDS ORDERED: LEVE500 PO (11:49)
[2017-05-04] MEDS ORDERED: RANI150T PO (11:49)
== END 2017-04-22 12:15 | disposition home or self-care (01) ==
LOC: NEPE 08:49
DX: G40.409 Other generalized epilepsy and epileptic syndromes, not intractable, without status epilepticus (principal); R62.50 Unspecified lack of expected normal physiological development in childhood; Z79.899 Other long term (current) drug therapy
CPT/HCPCS: 80053; 81001; 84702; 85025; 96374; 99285; J2060; J7030